=== PATIENT | female | born 1950 | race Caucasian/White ===

== ENCOUNTER → 2017-06-23 | Outpatient (CLI) | payer MEDICARE ==
--- NOTE | 2017-06-25 22:12 | BD ---
EXAMINATION TYPE: MG DEXA axial skeleton. DATE OF EXAM: 06/23/2017 COMPARISON: NONE CLINICAL HISTORY: 67-year-old female postmenopausal screening Height: 67 Weight: 156.2 FRAX RISK QUESTIONS: Alcohol (3 or more units per day): NO Family History (Parent hip fracture): YES Glucocorticoids (More than 3mos): NO (Ex: prednisone, prednisolone, methylprednisolone, dexamethasone, and hydrocortisone). History of Fracture in Adulthood: NO Secondary Osteoporosis: 1. Type 1 Diabetes: NO 2. Hyperthyroidism: NO 3. Menopause before 45: NO 4. Malnutrition: NO 5. Chronic liver disease: NO Rheumatoid Arthritis: NO Current Tobacco Use: NO RISK FACTORS HISTORY OF: Hip Fracture (Right/Left): NO Spine Fracture: NO History of Wrist Fracture: NO Surgery to Spine/Hip(right/left)/Wrist (right/left): NO Family History of Osteoporosis: YES Active: YES Diet low in dairy products/other sources of calcium: YES Postmenopausal woman: AROUND AGE 54 Lost more than 2 inches in height since high school: NO Frequent falls: NO Poor Health: NO Hyperparathyroidism: NO Adrenal Insufficiency: NO MEDICATIONS: NONE Additional History: EXAM MEASUREMENTS: Bone mineral densitometry was performed using the MyMosa System. Bone mineral density as measured about the Lumbar spine is: ----- L1-L4(G/cm2): 0.978 T Score Values are as follows: ----- L2: -1.9 ----- L3: -1.7 ----- L4: -1.4 ----- L1-L4: -1.7 Bone mineral density has: DECREASED -12.7 % since study of: 08.19.2004 Bone mineral density about the R hip (g/cm2): 0.962 Bone mineral density about the L hip (g/cm2): 0.987 T Score values are as follows: -----R Neck: -0.5 -----L Neck: -0.4 -----R Total: -0.4 -----L Total: 0.0 Bone mineral density has: DECREASED -4.8 % since study of: 08.19.2004 IMPRESSION: Osteopenia (T Score between -2.5 and -1 as noted by T score values in the lumbar spine). There is slightly increased risk of fracture and the patient may be considered for treatment. Re-Screen 2-5 years. NOTE: T-SCORE=SD OF THE YOUNG ADULT MEAN.
== END | disposition home or self-care (01) ==
LOC: RADBDWWP 16:06
PROVIDERS: ATTEND Obstetrics & Gynecology
DX: M85.88 Other specified disorders of bone density and structure, other site (principal); Z78.0 Asymptomatic menopausal state
CPT/HCPCS: 77080

== ENCOUNTER → 2018-07-24 | Outpatient (CLI) | payer MEDICARE ==
[2018-07-24 12:51] VITALS: TEMP 98.1; BMI 23.5
--- NOTE | 2018-07-24 13:37 | P.HPOB ---
History of Present Illness H&P Date: 07/24/18 Chief Complaint: The patient is here for her routine gynecologic exam and mammogram. This is a 68-year-old G0 with an LMP of 2002. The patient is without gynecologic complaints. She states she continues to do well with Vagifem which is used for vaginal dryness. She denies any postmenopausal bleeding. Review of Systems She is lost about 7 pounds over the past year and she has done this with diet and exercise.. She denies respiratory, cardiac and G.I. problems. She denies maltreatment or problems with falling. : she denies any significant problems with urinary leakage. Past Medical History Past Medical History: Hypertension Additional Past Medical History / Comment(s): Sarcoidosis which affects her lungs and kidneys. History of osteopenia. 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 History of Any Multi-Drug Resistant Organisms: None Reported Past Surgical History: Tonsillectomy Additional Past Surgical History / Comment(s): Axillary lymph nodes removed to diagnose sarcoidosis in 2002. Past Psychological History: No Psychological Hx Reported Smoking Status: Never smoker Past Alcohol Use History: Rare (2 per year) Past Drug Use History: None Reported - Past Family History Father Family Medical History: Myocardial Infarction ([place]) Mother Family Medical History: Cancer (Ovarian cancer), Coronary Artery Disease (CAD) Brother(s) Family Medical History: Cancer (Leukemia) Medications and Allergies Home Medications Medication Instructions Recorded Confirmed Type No Known Home Medications 07/24/18 07/24/18 History Allergies Allergy/AdvReac Type Severity Reaction Status Date / Time ampicillin AdvReac Intermediate hives Unverified 07/24/18 12:44 Exam Vital Signs Temp 07/24/18 12:46 98.1 F Intake and Output 07/23/18 07/24/18 07/24/18 22:59 06:59 14:59 Other: Weight 68.039 kg Height 5'7", weight 150 pounds, pulse 80, blood pressure was refused by the patient. BMI 23.5. This is a well-developed well-nourished white female who is alert and oriented times 3 in no acute distress. HEENT: Within normal limits. NECK: Supple without mass or thyromegaly. CHEST AND LUNGS: Clear to auscultation. HEART: Regular rate and rhythm. BREASTS: Are without mass or discharge. AXILLARY EXAM: Negative for adenopathy. BACK: Negative for CVA tenderness. ABDOMEN: Soft, nontender, without palpable masses. PELVIC EXAM: Normal external genitalia with mild to moderate atrophy. Cervix and vagina appear normal mild to moderate atrophy. There is no unusual discharge. There is no evidence of prolapse. The uterus is midposition, nongravid size and nontender. There are no palpable adnexal masses or tenderness. RECTAL EXAM: rectovaginal exam is negative for mass or tenderness and is negative for occult blood. EXTREMITIES: Nontender. IMPRESSION: 1. 68-year-old menopausal female with normal gynecologic exam. 2. Doing well with Vagifem for vaginal dryness. 3. History of osteopenia. 4. History of elevated blood pressure. The patient is refusing blood pressure testing at this time. PLAN: 1. Pap smear was deferred since she had a normal one last year. 2. Self breast awareness was discussed with the patient. 3. Screening mammogram will be done today. 4. We have discussed the importance of having good blood pressure control. She states she does home blood pressure checks and there typically approximately 120-130 over 80 to 90. She states she does have her blood pressure checked by Dr. Sheri Morris, her primary care physician. 5. She did receive for flu shot this fall. 6. I have recommended screening colonoscopy. She will discuss this with her primary care physician. 7. She will continue using Vagifem as directed. The electronic prescription will be sent to [facility] pharmacy. 8. She will return in one year.
--- NOTE | 2018-07-26 09:37 | MM ---
Reason for exam: screening (asymptomatic). Last mammogram was performed 1 year and 1 month ago. History: Patient is postmenopausal and is nulliparous. Took hormonal contraceptives for 2 years. MG Screening Mammo w CAD Bilateral CC and MLO view(s) were taken. Prior study comparison: June 27, 2017, bilateral MG 3d screening mammo w/cad. June 01, 2016, bilateral MG screening mammo w CAD. The breast tissue is extremely dense which could obscure a lesion on mammography. No significant changes when compared with prior studies. ASSESSMENT: Benign, BI-RAD 2 RECOMMENDATION: Routine screening mammogram of both breasts in 1 year.
== END | disposition home or self-care (01) ==
LOC: WWCWWP 12:30
PROVIDERS: ATTEND Obstetrics & Gynecology
DX: Z12.31 Encounter for screening mammogram for malignant neoplasm of breast (principal)
CPT/HCPCS: 77067

== ENCOUNTER → 2019-09-17 | Outpatient (CLI) | payer MEDICARE ==
[2019-09-17 11:00] VITALS: PULSE 68; RESP 16; TEMP 97.9
--- NOTE | 2019-09-17 12:02 | P.HPOB ---
History of Present Illness H&P Date: 09/17/19 Chief Complaint: The patient is here for her routine gynecologic exam and ma mmogram. This is a 69-year-old G0 with an LMP of 2002. The patient is without gynecologic complaints and denies any postmenopausal bleeding. She states she is doing well with Vagifem vaginal estrogen. Review of Systems Her weight has been stable. She denies respiratory, cardiac and G.I. problems. She denies maltreatment or problems with falling. : Occasional slight leakage when she exercises or sneezes. Past Medical History Past Medical History: Hypertension Additional Past Medical History / Comment(s): Sarcoidosis which affects her lungs and kidneys. History of osteopenia. 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 History of Any Multi-Drug Resistant Organisms: None Reported Past Surgical History: Tonsillectomy Additional Past Surgical History / Comment(s): Axillary lymph nodes removed to diagnose sarcoidosis in 2002. Past Psychological History: No Psychological Hx Reported Smoking Status: Never smoker Past Alcohol Use History: Rare (1 per year) Past Drug Use History: None Reported Additional History: She has been since 1973 and is retired. 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 - Past Family History Father Family Medical History: Myocardial Infarction ([place]) Mother Family Medical History: Cancer, Coronary Artery Disease (CAD) Additional Family Medical History / Comment(s): Ovarian cancer. She had a maternal cousin who also had ovarian cancer. Brother(s) Family Medical History: Cancer Additional Family Medical History / Comment(s): Leukemia. Medications and Allergies Home Medications Medication Instructions Recorded Confirmed Type Estradiol [Vagifem] 10 mcg VG DIRECTED #24 tablet 07/24/18 09/17/19 Rx Ascorbic Acid [Vitamin C] 500 mg PO DAILY 09/17/19 09/17/19 History Cholecalciferol [Vitamin D3] 400 unit PO DAILY@1200 09/17/19 09/17/19 History Tumeric 1 tab PO DAILY 09/17/19 09/17/19 History Vitamin E (Dl,Tocopheryl Acet) 400 unit PO DAILY 09/17/19 09/17/19 History [Vitamin E] Allergies Allergy/AdvReac Type Severity Reaction Status Date / Time ampicillin AdvReac Intermediate hives Unverified 09/17/19 11:00 Exam Vital Signs Temp Pulse Resp Pulse Ox 09/17/19 10:54 97.9 F 68 16 100 Intake and Output 09/16/19 09/17/19 09/17/19 22:59 06:59 14:59 Other: Weight 68.946 kg Height 5 feet 7 inches, weight 152 pounds, BMI 23.8. This is a well-developed well-nourished white female who is alert and oriented times 3 in no acute distress. HEENT: Within normal limits. NECK: Supple without mass or thyromegaly. CHEST AND LUNGS: Clear to auscultation. HEART: Regular rate and rhythm. BREASTS: Are without mass or discharge. AXILLARY EXAM: Negative for adenopathy. BACK: Negative for CVA tenderness. ABDOMEN: Soft, nontender, without palpable masses. PELVIC EXAM: Normal external genitalia with mild to moderate atrophy. Cervix and vagina appear normal with mild atrophy. There is no unusual discharge. There is no evidence of prolapse. The uterus is midposition, nongravid size and nontender. There are no palpable adnexal masses or tenderness. RECTAL EXAM: Rectovaginal exam is negative for mass or tenderness and is negative for occult blood. EXTREMITIES: Nontender. IMPRESSION: 1. 69-year-old menopausal female with normal gynecologic exam. 2. History of osteopenia. 3. Family history of ovarian cancer in her mother. 4. Doing well with Vagifem for vaginal dryness. 5. History of elevated blood pressure. The patient is refusing blood pressure testing at this time. PLAN: 1. Pap smear was performed. If this is negative, we will consider discontinuing Pap smear screening 2. Self breast awareness was discussed with the patient. 3. Screening mammogram will be done today. 4. Yearly pelvic ultrasound was recommended because of her family history of ovarian cancer. The order slip was given to the patient for this. 5. Osteoporosis prevention was discussed. I have stressed the importance of adequate calcium, vitamin D and regular exercise. Recommended amounts of calcium and vitamin D were also discussed. Bone density testing was recommended since it is been more than 2 years. The order slip was given to the patient for this. 6. I have recommended that she see her primary care physician regarding blood pressure elevations in the past for possible treatment, if needed. She has been refusing blood pressure testing at her doctor's visits and states she has been checking it on her own. She states her blood pressures have run about 120- 130/80 at home. 7. I have recommended colonoscopy screening. She is declining colonoscopies. She will discuss alternatives such as Cologard with her primary care physician. 8. She did receive her flu shot in the fall. 9. She was advised to return in one year for her annual well woman exam.
--- NOTE | 2019-09-19 10:45 | MM ---
Reason for exam: screening (asymptomatic). Last mammogram was performed 1 year and 2 months ago. History: Patient is postmenopausal and is nulliparous. Took hormonal contraceptives for 2 years. Physical Findings: A clinical breast exam by your physician is recommended on an annual basis and results should be correlated with mammographic findings. MG Screening Mammo w CAD Bilateral CC and MLO view(s) were taken. Prior study comparison: July 24, 2018, bilateral MG screening mammo w CAD. June 27, 2017, bilateral MG 3d screening mammo w/cad. The breast tissue is extremely dense which could obscure a lesion on mammography. No significant changes when compared with prior studies. ASSESSMENT: Benign, BI-RAD 2 RECOMMENDATION: Routine screening mammogram of both breasts in 1 year.
== END | disposition home or self-care (01) ==
LOC: WWCWWP 10:45
PROVIDERS: ATTEND Obstetrics & Gynecology
DX: Z12.31 Encounter for screening mammogram for malignant neoplasm of breast (principal)
CPT/HCPCS: 77067